=== PATIENT | female | born 1995 | race African-American/Black ===

== ENCOUNTER 2023-01-18 19:16 | Emergency (ER) | payer OTHER ==
[2023-01-18 23:22] LABS: Bacteria/HPF None Seen HPF (None Seen); Bilirubin Negative (Negative); Blood, Urine Negative (Negative); CAUTI Indications for Culture Dysuria,urgency,freq; Clarity Turbid (Clear); Glucose, Urine (Dipstick) Normal (Negative); Ketone, Urine Negative (Negative); Leukocyte 250 Leu/uL (Negative); Nitrite Negative (Negative); Protein, Urine (Dipstick) 20 mg/dL (Neg-Trace); RBC/HPF 0-3 HPF (0-3); Specific Gravity, Urine 1.027 (1.002-1.036); Urobilinogen Normal mg/dL (Less than 2); WBC/HPF 21-50 HPF (0-3)
[2023-01-18 23:24] LABS: Pregnancy Test - Urine (BHCG) Negative (Negative); Pregu Control Background? CLEAR/WHITE (CLR/WHITE); Pregu Control Bar Appear? YES (CONTROL BAR); Specific Gravity 1.027 (1.002-1.036); Urine Culture Reflex Yes Yes
[2023-01-19] MEDS ORDERED: Lidocaine 1% MPF 2 ML VIAL ONE (00:37)
[2023-01-19] MEDS ORDERED: cefTRIAXone (ROCEPHIN) 500 MG VIAL ONE (00:37)
[2023-01-19 03:41] LABS: Chlam.trachomatis by PCR,Urine Not Detected (NotDetected); GC N.gonorrhoeae PCR,UrineVOID Not Detected (NotDetected)
[2023-01-19 03:41] LABS: Chlamydia by PCR, EndoCx Swab Not Detected (NotDetected); GC by PCR, EndoCx Swab Not Detected (NotDetected)
[2023-01-19 10:50] LABS: Syphilis Antibody Nonreactive (Nonreactive); Syphilis Antibody Index 0.04 S/CO (<1.00 Non-Reactive)
== END 2023-01-19 01:06 | disposition home or self-care (01) ==
LOC: ERS 19:16
DX: T74.21XA Adult sexual abuse, confirmed, initial encounter (principal)
CPT/HCPCS: 36415; 81001; 81025; 86780; 87086; 87480; 87491; 87510; 87591; 87660; 96372; J0696